=== PATIENT | female | born 1980 | race Caucasian/White ===

== ENCOUNTER 2024-03-10 08:02 | Outpatient (CLI) | payer OTHER ==
--- NOTE | 2024-03-10 13:44 | XRAY Report ---
PROCEDURE: Hand 3+V BL INDICATIONS: LOW BACK PX,BILAT HAND PX TECHNIQUE: 3 views of the hand(s) acquired. COMPARISON: None FINDINGS: Bones: No fractures or dislocations. Normal alignment. Joint spaces are maintained. No juxta-articul ar erosions or periosteal reaction. No suspicious bony lesions. Soft tissues: No suspicious soft tissue calcifications or masses. IMPRESSION: 1.No acute bony abnormality. 2.No radiographic evidence of significant degenerative change or inflammatory arthritis. Reviewed by: Gumaro Sewell MD on 03/10/2024 1:43 PM PDT Approved by: Gumaro Sewell MD on 03/10/2024 1:43 PM PDT Station ID: [id number]
--- NOTE | 2024-03-10 13:46 | XRAY Report ---
PROCEDURE: Wrist 3+V BL INDICATIONS: LOW BACK PX,BILAT HAND PX TECHNIQUE: 3 views of the wrist were acquired. COMPARISON: None. FINDINGS: Bones: No fractures or dislocations. Mild right first CMC joint space narrowing. Remainder of the j oint spaces are maintained. No juxta-articular erosions or periosteal reaction. No suspicious bony le sions. Soft tissues: No suspicious soft tissue calcifications or masses. IMPRESSION: 1.No acute bony abnormality. 2.Mild right first CMC joint space narrowing. 3.No radiographic evidence of inflammatory arthritis. Reviewed by: Gumaro Sewell MD on 03/10/2024 1:45 PM PDT Approved by: Gumaro Sewell MD on 03/10/2024 1:45 PM PDT Station ID: [id number]
--- NOTE | 2024-03-10 14:59 | XRAY Report ---
PROCEDURE: Lumbar Spine 2-3V INDICATIONS: LOW BACK PX,BILAT HAND PX TECHNIQUE: 3 views of the lumbar spine were acquired. COMPARISON: None. FINDINGS: Bones: Mild degenerative changes. No acute vertebral body height loss or traumatic subluxation. Soft tissues: No suspicious calcifications. Moderate fecal loading. IMPRESSION: Mild spondylosis. No acute radiographic abnormality. If there is high concern for further derangement , consider MRI evaluation. Reviewed by: Mu Meneses MD on 03/10/2024 2:57 PM PDT Approved by: Mu Meneses MD on 03/10/2024 2:57 PM PDT Station ID: [id number]
== END 2024-03-10 08:03 | disposition home or self-care (01) ==
LOC: DI 08:02
PROVIDERS: ATTEND Nurse Practitioner Family
DX: M47.816 Spondylosis without myelopathy or radiculopathy, lumbar region (principal); M79.641 Pain in right hand; M79.642 Pain in left hand